=== PATIENT | female | born 1995 | race Caucasian/White ===

== ENCOUNTER → 2017-05-31 | Outpatient (CLI) | payer BC ==
[~2017-05-31] MED LIST: LEXAPRO20 MG PO; SPRINTEC 35 MCG1 TAB PO; ZOLOFT 50MG50 MG
== END ==
LOC: MC.RAD 08:15
DX: N64.59 Other signs and symptoms in breast (principal)

== ENCOUNTER 2017-10-31 12:22 | Emergency (ER) | payer BC ==
[~2017-10-31] VITALS: Wt 47.7 kg
[2017-10-31 12:34] VITALS: TEMP 99.3
[2017-10-31] MEDS ORDERED: BUSPAR10 MG PO (13:14)
[2017-10-31] MEDS ORDERED: PRILOSEC 20MG20 MG PO (13:14)
[2017-10-31] MEDS ORDERED: ZOFRAN 4MG T4 MG/TAB PO ×2 (13:15→14:54)
[2017-10-31 13:31] LABS: HEMATOCRIT 46.6 % (37.0-47.0); HEMOGLOBIN 16.2 g/dl (12.5-16.0); MEAN CELL VOLUME 90 fl (80.0-100.0); MEAN CORPUSCULAR HEMOGLOBIN 31 pg (27.0-31.0); MEAN CORPUSCULAR HGB CONC 35 g/dl (33.0-37.0); PLATELET COUNT 203 K/mm3 (130-400); REDCELL DISTRIBUTION WIDTH-CV 12.7 % (11.5-14.5)
[2017-10-31 13:42] LABS: BAND 8 % (0-10); EOSINOPHIL 1 % (0-4); LYMPHOCYTE 2 % (20.0-51.0); NEUTROPHILS 86 % (42.0-75.2)
[2017-10-31 13:43] LABS: PLATELET ESTIMATE NORMAL (NORMAL)
[2017-10-31 13:45] LABS: STOMATOCYTE 1+
[2017-10-31 13:53] LABS: ALBUMIN 4.5 gm/dL (3.5-5.0); BILIRUBIN,TOTAL 0.8 mg/dL (0.0-1.0); CALCIUM 9.6 mg/dL (8.4-10.2); CREATININE, serum 0.76 mg/dL (0.52-1.25); POTASSIUM 4.4 mmol/L (3.4-5.0); TOTAL PROTEIN 8.6 gm/dL (6.4-8.2)
[2017-10-31 14:20] LABS: C-REACTIVE PROTEIN 1.9 mg/dL (0.0-0.9)
[2017-10-31 15:09] VITALS: BP 104/71; PULSE 96
== END 2017-10-31 15:10 | disposition home or self-care (01) ==
LOC: COL.ER 12:22
PROVIDERS: Emergency Medicine
DX: R10.13 Epigastric pain (principal); R11.2 Nausea with vomiting, unspecified; R19.7 Diarrhea, unspecified; K21.9 Gastro-esophageal reflux disease without esophagitis; F41.9 Anxiety disorder, unspecified; F32.9 Major depressive disorder, single episode, unspecified
CPT/HCPCS: J2405; J2550; J7030

== ENCOUNTER 2021-07-07 18:49 | Emergency (ER) | payer BC ==
[~2021-07-07] VITALS: Ht 157.5 cm; Wt 52.3 kg
[~2021-07-07 18:49] MED LIST changes: +BUSPAR10 MG PO; +PRILOSEC 20MG20 MG PO; +ZOFRAN 4MG T4 MG/TAB PO
[2021-07-07 23:15] VITALS: BP 116/81; PULSE 84; TEMP 97.8
[2021-07-07] MEDS ORDERED: LEXAPRO 10MG10 MG (23:35)
[2021-07-07] MEDS ORDERED: SINGULAIR 110 MG/TAB (23:36)
[2021-07-07] MEDS ORDERED: WELLBUTRIN 75MG75 MG PO (23:36)
[2021-07-07] MEDS ORDERED: TRI-SPRINTEC 281 TAB (23:38)
== END 2021-07-07 23:15 | disposition home or self-care (01) ==
LOC: COL.ER 18:49
DX: T76.21XA Adult sexual abuse, suspected, initial encounter (principal)